=== PATIENT | female | born 1995 | race Caucasian/White ===

== ENCOUNTER 2016-06-12 23:58 | Emergency (ER) | payer OTHER ==
--- NOTE | ~2016-06-12 | CR20 ---
[facility] A Service of [facility] RADIOLOGY TEXT RESULTS PATIENT: SHILOH FUENTES LOCATION: [facility] : [birth year] UNIT #: [id number] AGE: [address]: Veronica Rodriguez APRN SEX: F ORDER DR: [id number] [facility] [address] [place], [place] [address] [id number] E MR#: [id number] Acc #: [id number] NAME: SHILOH FUENTES : 1995 SEX: F STUDY DATE/TIME: 06/13/2016 0350 UNIT: [facility] ROOM: STUDY DESCRIPTION: CR Ankle Min 3 Views Lt Attending Physician: Veronica Rodriguez A.P.R.N. Ordering Physician: Veronica Rodriguez A.P.R.N. Primary Care Physician: No Primary Care Physician MEDICAL IMAGING REPORT This report is preliminary unless electronic signature is present EXAM Left ankle, 06/13 at 0350. INDICATION Ankle pain with soft tissue swelling and bruising since trampoline accident today. FINDINGS 3 views of the left ankle were obtained. No acute fracture or malalignment is seen. Mortise is intact. There is some mild lateral soft tissue swelling. IMPRESSION Lateral soft tissue swelling without fracture or subluxation. Dictated by... Carlos Garcia Jr., M.D. THIS IS AN ELECTRONICALLY VERIFIED REPORT Carlos Garcia Jr., M.D. at 06/13/2016 8:45 PM BRIANK/jonathan TD: 06/13/2016 11:57 JOB #: [id number] MEDICAL IMAGING REPORT COPY
--- NOTE | ~2016-06-12 | CR126 ---
[facility] A Service of [facility] RADIOLOGY TEXT RESULTS PATIENT: SHILOH FUENTES LOCATION: [facility] : [birth year] UNIT #: [id number] AGE: [address]: Veronica Rodriguez APRN SEX: F ORDER DR: [id number] [facility] [address] [place], [place] [address] [id number] E MR#: [id number] Acc #: [id number] NAME: SHILOH FUENTES : 1995 SEX: F STUDY DATE/TIME: 06/13/2016 03:52 UNIT: [facility] ROOM: STUDY DESCRIPTION: CR Foot Complete Min 3 View Lt Attending Physician: Veronica Rodriguez A.P.R.N. Ordering Physician: Veronica Rodriguez A.P.R.N. Primary Care Physician: Primary Care Physician No MEDICAL IMAGING REPORT This report is preliminary unless electronic signature is present EXAM Left foot 06/13/2016 03:52 INDICATION Pain, swelling and bruising for 1 day after trampoline injury. FINDINGS The tarsal, metatarsal, and phalangeal elements are all anatomically normal in position and alignment. There are no articular defects. No fractures or radiopaque foreign bodies in the soft tissues are apparent. IMPRESSION Normal foot. Dictated by... Carlos Garcia Jr., M.D. THIS IS AN ELECTRONICALLY VERIFIED REPORT Carlos Garcia Jr., M.D. at 06/13/2016 8:45 PM BO/nettie TD: 06/13/2016 12:02 JOB #: [id number] MEDICAL IMAGING REPORT COPY
== END 2016-06-13 04:50 | disposition home or self-care (01) ==
LOC: CED 23:58
DX: S93.402A Sprain of unspecified ligament of left ankle, initial encounter (principal); X50.9XXA Other and unspecified overexertion or strenuous movements or postures, initial encounter; Y93.44 Activity, trampolining
CPT/HCPCS: 29405; 73610; 73630; 99283